=== PATIENT | female | born 1970 | race African-American/Black ===

== ENCOUNTER 2018-08-25 08:58 | Emergency (ER) | payer MEDICAID, OTHER ==
[~2018-08-25] VITALS: Ht 160 cm; Wt 77.0 kg
[2018-08-25 09:01] VITALS: BP 172/76
== END 2018-08-25 10:49 | disposition home or self-care (01) ==
LOC: ER 08:58
DX: M54.5 Low back pain (principal); G89.29 Other chronic pain; R03.0 Elevated blood-pressure reading, without diagnosis of hypertension
CPT/HCPCS: 99283